=== PATIENT | male | born 1975 | race Caucasian/White ===

== ENCOUNTER 2021-06-23 22:28 | Emergency (ER) | payer BC ==
[2021-06-23 22:34] VITALS: BP 147/85; PULSE 80; TEMP 98; BMI 25.6
[2021-06-23] MEDS ORDERED: AZITHROMYCIN 500 MG TABLET PO ONE (22:37)
[2021-06-23] MEDS ORDERED: AZITHROMYCIN 250 MG TABLET ONE (22:37)
== END 2021-06-23 22:44 | disposition home or self-care (01) ==
LOC: FER 22:28
DX: J01.90 Acute sinusitis, unspecified (principal)
CPT/HCPCS: 99281-25